=== PATIENT | female | born 1960 | race Caucasian/White ===

== ENCOUNTER 2017-04-15 13:07 | Emergency (ER) | payer BC ==
[~2017-04-15] VITALS: Ht 165.1 cm; Wt 147.7 kg
[2017-04-15] MEDS ORDERED: INSULANT SC (13:23)
[2017-04-15] MEDS ORDERED: HYDR25TAB PO (13:23)
[2017-04-15] MEDS ORDERED: METF500T4 PO (13:23)
[2017-04-15] MEDS ORDERED: ATOR1TAB21 PO (13:23)
[2017-04-15] MEDS ORDERED: POTA20TA6 PO (13:23)
[2017-04-15] MEDS ORDERED: PROAAER10 INH (13:23)
[2017-04-15] MEDS ORDERED: FURO40TA2 PO (13:23)
[2017-04-15] MEDS ORDERED: INSULADS INJ (13:23)
[2017-04-15] MEDS ORDERED: ADV250INH INH (13:23)
[2017-04-15] MEDS ORDERED: ATEN25TA PO (13:23)
[2017-04-15] MEDS ORDERED: LANS30CA PO (13:23)
[2017-04-15] MEDS ORDERED: FLUTISP (13:23)
[2017-04-15] MEDS ORDERED: SERT-138 PO (13:23)
[2017-04-15] MEDS ORDERED: IRBE150T12 PO (13:23)
[2017-04-15] MEDS ORDERED: LIDOCAINE 1% MDV 20ML VIAL As Ordered ONE (14:00)
[2017-04-15] MEDS ORDERED: LIDOCAINE 1% SDV INJ 30 ML VIAL SC SCH (14:00)
[2017-04-15] MEDS ORDERED: LIDOCAINE 1% MDV 20ML VIAL IM ONE (14:30)
[2017-04-15] MEDS ORDERED: ADACEL/BOOSTRIX VACCINE (DIPHTH/PERTUSS/ACELL/TETANUS)0.5ML SYR (90715) IM ONE (14:30)
[2017-04-15] MEDS ORDERED: AUGMENTIN 875 MG TAB PO ONE (14:30)
[2017-04-15] MEDS ORDERED: AUGM875T28 PO (14:39)
[2017-04-15] MEDS ORDERED: HYDR-3713 PO (14:39)
[2017-04-15 14:43] VITALS: BP 165/80
== END 2017-04-15 14:47 | disposition home or self-care (01) ==
LOC: M ED 13:07
DX: S51.851A Open bite of right forearm, initial encounter (principal); W54.0XXA Bitten by dog, initial encounter; Y92.099 Unspecified place in other non-institutional residence as the place of occurrence of the external cause; Y93.89 Activity, other specified; Y99.9 Unspecified external cause status; E11.9 Type 2 diabetes mellitus without complications; I10 Essential (primary) hypertension; E66.01 Morbid (severe) obesity due to excess calories; Z79.4 Long term (current) use of insulin; Z79.899 Other long term (current) drug therapy

== ENCOUNTER → 2019-02-10 | Outpatient (CLI) | payer BC ==
[~2019-02-10] MED LIST: ADV250INH INH; ATEN25TA PO; ATOR1TAB21 PO; AUGM875T28 PO; FLUTISP; FURO40TA2 PO; HYDR-3713 PO; HYDR25TAB PO; INSULADS INJ; INSULANT SC; IRBE150T12 PO; LANS30CA PO; METF-791 PO; POTA20TA6 PO; PROAAER10 INH; SERT-138 PO
--- NOTE | 2019-02-11 09:16 | REPMRS ---
Patient History The patient states she has not had a clinical breast exam in over a year. Patient is postmenopausal. Family history of endometrial cancer at age 30 in mother. No Hormone Replacement Therapy Digital Woman Screen Mammo: February 10, 2019 - Exam #: [id number] Bilateral CC and MLO view(s) were taken. Technologist: Michelle Terrell, Technologist No prior studies available for comparison. FINDINGS: The breast tissue is almost entirely fat. There is no evidence of dominant mass, architectural distortion, or grouped microcalcification typical of malignancy. 3-D tomosynthesis shows no additional findings. Assessment: BI-RADS/ACR category 1 mammogram. Negative Mammogram. Recommendation Routine screening mammogram of both breasts in 1 year (for women over age 40). This patient's Lifetime Breast Cancer RIsk is estimated at 6.5 %. This mammogram was interpreted with the aid of an FDA-approved computer-aided dectection system. Electronically Signed By: Vazquez Macias MD 02/11/19 0938
== END ==
LOC: M WHC 15:22
PROVIDERS: ATTEND Internal Medicine
DX: Z12.31 Encounter for screening mammogram for malignant neoplasm of breast (principal)

== ENCOUNTER → 2021-05-30 | Outpatient (REF) ==
[~2021-05-30] MED LIST changes: +HYDR-3490 PO; -HYDR25TAB PO; -IRBE150T12 PO; +IRBE150T7 PO; -METF-791 PO; +METF-838 PO; +POTA-151 PO; -POTA20TA6 PO
== END ==
LOC: M LABSMTC 10:46
PROVIDERS: ATTEND Family Medicine
DX: Z20.822 Contact with and (suspected) exposure to COVID-19 (principal)

== ENCOUNTER → 2021-09-16 | Outpatient (CLI) | payer BC ==
[2021-09-16 12:53] LABS: ALBUMIN 3.4 GM/DL (3.2-5.2); BILIRUBIN,TOTAL 0.4 MG/DL (0.2-1.0); CALCIUM LEVEL 7.6 MG/DL (8.5-10.1); CHOLESTEROL RISK RATIO 3.145 (<5); CREATININE FOR GFR 1.35 MG/DL (0.55-1.30); GLOMERULAR FILTRATION RATE 42.7 (>51); POTASSIUM SERUM 3.4 MEQ/L (3.5-5.1); URIC ACID 5.4 MG/DL (2.6-6.0)
[2021-09-16 14:22] LABS: HEMOGLOBIN A1c 7.4 %
== END ==
LOC: M WUC 09:12
PROVIDERS: ATTEND Internal Medicine
DX: E78.5 Hyperlipidemia, unspecified (principal); E11.9 Type 2 diabetes mellitus without complications; M10.9 Gout, unspecified

== ENCOUNTER → 2022-06-12 | Outpatient (CLI) | payer BC | LOC: M SOG 09:49 | PROVIDERS: ATTEND Physician Assistant | DX: M79.642 Pain in left hand (principal) ==

== ENCOUNTER → 2023-08-31 | Outpatient (CLI) | payer BC ==
[~2023-08-31] MED LIST changes: +IRBE150T27 PO; -IRBE150T7 PO
[2023-08-31 17:24] LABS: URIC ACID 8.8 MG/DL (3.1-7.8)
[2023-08-31 17:34] LABS: HEMOGLOBIN A1c 8.2 % (4.0-6.0)
[2023-08-31 17:41] LABS: ALBUMIN 2.7 G/DL (3.2-5.2); BILIRUBIN,TOTAL 0.3 MG/DL (0.3-1.2); CALCIUM LEVEL 7.3 MG/DL (8.3-10.6); CHOLESTEROL RISK RATIO 3.59 (<5); CREATININE FOR GFR 1.66 MG/DL (0.55-1.30); GLOMERULAR FILTRATION RATE 33.4 (>45); HDL CHOLESTEROL 39.8 MG/DL (>40); LDL CHOLESTEROL 73.6 MG/DL (<100); NON-HDL-C 103.2 MG/DL; POTASSIUM SERUM 3.9 MMOL/L (3.5-5.1); TOTAL PROTEIN 6.5 G/DL (5.7-8.2)
== END ==
LOC: M WUC 13:33
PROVIDERS: ATTEND Internal Medicine
DX: S92.411A Displaced fracture of proximal phalanx of right great toe, initial encounter for closed fracture (principal); E11.9 Type 2 diabetes mellitus without complications; E78.5 Hyperlipidemia, unspecified; M10.9 Gout, unspecified; W18.30XA Fall on same level, unspecified, initial encounter; Y92.009 Unspecified place in unspecified non-institutional (private) residence as the place of occurrence of the external cause

== ENCOUNTER → 2024-05-13 | Outpatient (CLI) | payer BC ==
[~2024-05-13] MED LIST changes: -ADV250INH INH; +ADVA1AER9 INH
[2024-05-13 20:17] LABS: URIC ACID 7.9 MG/DL (3.1-7.8)
[2024-05-13 20:20] LABS: ALBUMIN 2.6 G/DL (3.2-5.2); BILIRUBIN,TOTAL 0.2 MG/DL (0.3-1.2); CHOLESTEROL RISK RATIO 4.01 (<5); CREATININE FOR GFR 1.77 MG/DL (0.55-1.30); GLOMERULAR FILTRATION RATE 30.9 (>45); HDL CHOLESTEROL 32.1 MG/DL (>40); LDL CHOLESTEROL 56.1 MG/DL (<100); NON-HDL-C 96.9 MG/DL; TOTAL PROTEIN 6.5 G/DL (5.7-8.2)
[2024-05-13 20:39] LABS: HEMOGLOBIN A1c 10.5 % (4.0-6.0)
== END ==
LOC: M WUC 15:33
PROVIDERS: ATTEND Internal Medicine
DX: E78.5 Hyperlipidemia, unspecified (principal); M10.9 Gout, unspecified; E11.9 Type 2 diabetes mellitus without complications

== ENCOUNTER → 2024-05-21 | Outpatient (REF) | LOC: M EMP 11:14 | PROVIDERS: ATTEND Family Medicine | DX: Z11.52 Encounter for screening for COVID-19 (principal) ==

== ENCOUNTER → 2024-07-11 | Outpatient (REF) | payer BC ==
[2024-07-11 19:01] LABS: CREATININE FOR GFR 1.28 MG/DL (0.55-1.30); POTASSIUM SERUM 3.5 MMOL/L (3.5-5.1)
== END ==
LOC: M LABWUC 17:40
PROVIDERS: ATTEND Internal Medicine
DX: E11.9 Type 2 diabetes mellitus without complications (principal)

== ENCOUNTER → 2025-04-28 | Outpatient (REF) ==
[2025-04-28 09:49] LABS: SOFIA COVID ANTIGEN NEGATIVE (NEGATIVE)
== END ==
LOC: M EMP 07:14
PROVIDERS: ATTEND Family Medicine
DX: Z11.52 Encounter for screening for COVID-19 (principal)

== ENCOUNTER → 2025-04-29 | Outpatient (CLI) | payer BC ==
[2025-04-29 14:28] LABS: BASO # 0.0 10^3/uL (0.0-0.2); BASO % 0.4 % (0.0-1.0); EOS # 0.1 10^3/uL (0.0-0.5); EOS % 1.0 % (0.0-3.0); LYMPH # 1.6 10^3/uL (1.5-5.0); LYMPH % 17.6 % (24.0-44.0); MONO # 0.5 10^3/uL (0.0-0.8); MONO % 5.9 % (2.0-8.0); NEUTROPHILS # 6.7 10^3/uL (1.5-8.5); NEUTROPHILS % 74.8 % (36.0-66.0); PLATELET COUNT, AUTOMATED 298 10^3/uL (150-450)
[2025-04-29 14:41] LABS: ESTIMATED AVERAGE GLUCOSE 355.0 MG/DL (60-110)
[2025-04-29 15:21] LABS: ALT/SGPT 15.0 U/L (7.0-40); AST/SGOT 19.0 U/L (<34); CALCIUM LEVEL 6.4 MG/DL (8.3-10.6); CARBON DIOXIDE LEVEL 30.0 MMOL/L (20-31); CHLORIDE LEVEL 95.0 MMOL/L (98-107); CHOLESTEROL LEVEL 205.0 MG/DL (<200); CHOLESTEROL RISK RATIO 6.38 (<5); CREATININE FOR GFR 1.62 MG/DL (0.55-1.30); GLOMERULAR FILTRATION RATE 35.5 (>45); LDL CHOLESTEROL 135.1 MG/DL (<100); NON-HDL-C 172.9 MG/DL; POTASSIUM SERUM 2.9 MMOL/L (3.5-5.1); SODIUM LEVEL 138.0 MMOL/L (136-145); TRIGLYCERIDES LEVEL 189.0 MG/DL (<150)
== END ==
LOC: M WUC 10:58
PROVIDERS: ATTEND Internal Medicine
DX: A09 Infectious gastroenteritis and colitis, unspecified (principal); E11.9 Type 2 diabetes mellitus without complications; E78.5 Hyperlipidemia, unspecified